=== PATIENT | female | born 1980 | race Caucasian/White ===

== ENCOUNTER 2017-10-25 22:16 | Emergency (ER) | payer OTHER ==
[~2017-10-25] VITALS: Ht 167.6 cm; Wt 97.5 kg
[~2017-10-25 22:16] MED LIST: Hydrocodone-Ap1 EA23 PO; IBUP800 PO; Naprosyn500 MG PO
[2017-10-26] MEDS ORDERED: Robaxin500 MG PO (00:25)
== END 2017-10-26 01:01 | disposition home or self-care (01) ==
LOC: ER 22:16
DX: S16.1XXA Strain of muscle, fascia and tendon at neck level, initial encounter (principal); M25.512 Pain in left shoulder; M54.5 Low back pain; Z88.1 Allergy status to other antibiotic agents; Z88.5 Allergy status to narcotic agent; V69.49XA Driver of heavy transport vehicle injured in collision with other motor vehicles in traffic accident, initial encounter
CPT/HCPCS: 72100; 73030; 96372; 99283; J1885